=== PATIENT | male | born 1975 | race Caucasian/White ===

== ENCOUNTER 2016-02-17 14:04 | Emergency (ER) | payer MEDICAID ==
[2016-02-17 14:07] VITALS: TEMP 98.4; O2SAT 95
--- NOTE | 2016-02-17 14:37 | EDPHY ---
H & P Stated Complaint: skin rash ?allergic reaction Time Seen by Provider: 02/17/16 14:37 - Personal History Current Tetanus/Diphtheria Vaccine: Yes Current Tetanus Diphtheria and Acellular Pertussis (TDAP): Yes - Medical/Surgical History Hx Asthma: No Hx Chronic Respiratory Disease: No Hx Diabetes: No Hx Cardiac Disease: No Hx Renal Disease: No Hx Cirrhosis: No Hx Alcoholism: No Hx HIV/AIDS: No Hx Splenectomy or Spleen Trauma: No Other PMH: brain tumor 2003 - Social History Smoking Status: Never smoked Constitutional: Initial Vital Signs Temperature (C) 36.9 C 02/17/16 14:06 Heart Rate 77 02/17/16 14:06 Respiratory Rate 14 02/17/16 14:06 Blood Pressure 117/70 02/17/16 14:06 O2 Sat (%) 95 02/17/16 14:06 O2 Delivery Mode Room Air Allergies/Adverse Reactions: No Known Allergies Allergy (Verified 01/23/16 15:25) Home Medications: Medication Instructions Recorded Acetaminophen [Tylenol 325mg (*)] 650 mg PO Q4HRS PRN #0 tab 01/08/16 Dexamethasone [Decadron 2 MG (*)] 2 mg PO AD 01/24/16 Dexamethasone [Decadron 4 MG (*)] 4 mg PO AD 01/24/16 Cefepime HCl [Maxipime] 2 gm IV Q12HRS #0 vial 01/28/16 Dexamethasone [Decadron 2 MG (*)] 2 mg PO Q12H #0 tab 01/28/16 Dexamethasone [Decadron 4 MG (*)] 4 mg PO Q12H #0 tab 01/28/16 Vancomycin [Vancomycin (*)] 1.5 gm IV Q12H #0 vial 01/28/16 levETIRAcetam [Keppra 500 mg (*)] 750 mg PO BID #40 tab 01/28/16 Medical Decision Making ED Course/Re-evaluation: CHIEF COMPLAINT: Rash. 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 The rash was initially on his chest and he presented to the ER and was sent to Dr. Andre. The rash has since become pruritic and moved to his arms. He is no longer on antibiotics and is on the end of a steroid taper. He denies shortness of breath, swollen tongue, difficulty swallowing, fever, nausea, vomiting, or other complaints. REVIEW OF SYSTEMS: A 10 point review of systems was performed and is negative with the exception of the elements mentioned in the history of present illness. PHYSICAL EXAM: HR, BP, O2 Sat, RR. Temp noted General Appearance: Alert, well hydrated, appropriate, and non-toxic appearing. Head: Atraumatic without scalp tenderness or obvious injury Eyes: Pupils equal, round, reactive to light and accommodation, EOMI, no trauma , no injection. Ears: Clear bilaterally, no perforation, normal landmarks Nose: Atraumatic, no rhinorrhea, clear. Throat: There is no erythema or exudates, no lesions, normal tonsils, mucus membranes moist. Neck: Supple, 2+ carotid upstroke, nontender, no lymphadenopathy. Respiratory: No retractions, no distress, no wheezes, and no accessory muscle use. Lungs are clear to auscultation bilaterally. Cardiovascular: Regular rate and rhythm, no murmurs, rubs, or gallops. Bilateral carotid, radial, dorsalis pedis, and posterior tibial pulses intact. Good capillary refill all extremities. Gastrointestinal: Abdomen is soft, nontender, non-distended, no masses, no rebound, no guarding, no peritoneal signs. Musculoskeletal: Normal active ROM of all extremities, atraumatic. Neurological: Alert, appropriate, and interactive. The patient has normal DTRs and non-focal cranial nerves, motor, sensory, and cerebellar exam. Skin: Confluent urticaria that blanches nicely on his trunk and arms. Good turgor, no nodules on palpation. Past medical history:Brain tumor. 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 Family history:Non-contributory. Social history:Here with father. DIAGNOSTICS/PROCEDURES/CRITICAL CARE TIME: DIFFERENTIAL DIAGNOSIS: The differential diagnosis included but was not limited to anaphylaxis, anaphylactoid reaction, urticarial reaction, and other infectious causes for skin rash. MEDICAL DECISION MAKING: The patient is a 40-year-old male presenting with migrating rash for 16 days. He is a patient of Dr. 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 He was on IV antibiotics for 14 days and is on no antibiotics at this time. He is at the tail end of a steroid taper. The rash is on his trunk and extremities. I will consult with Dr. Andre from infectious disease. 1547: Consulted with infectious disease. She agrees that the patient's urticaria is most likely not due to the antibiotics that the patient was on. 1549: Consulted with Dr. Cedillo, neurosurgery. He recommends stopping Keppra, placing the patient on steroids, and following up with the office tomorrow. 4mg PO Decadron administered. I discussed this plan with the patient and answered all of his questions. He was given warnings and return precautions prior to discharge. He is comfortable with the plan. Departure - Departure Disposition: Home, Routine, Self-Care Clinical Impression: Skin rash, Medication reaction Condition: Good Instructions: Urticaria (ED) Additional Instructions: Stop taking your Keppra as we discussed. Call Dr. Martinez, neurosurgery, tomorrow to set up a follow up appointment. Return to the emergency department if you experience serious worsening of condition. Referrals: Aiden Martinez MD [Medical Doctor] - As per Instructions Report Scribed for: Severiano Perdue Report Scribed by: Josue Barry Date of Report: 02/17/16 Time of Report: 15:16
[2016-02-17] MEDS ORDERED: DEXAMETHASONE VARIABLE DOSE PO ONE (15:53)
[2016-02-17] MEDS ORDERED: DEXAMETHASONE 4 MG TAB ONE (15:57)
[2016-02-17 16:03] VITALS: BP 112/69; PULSE 71; RESP 16
== END 2016-02-17 16:03 | disposition home or self-care (01) ==
DX: R21 Rash and other nonspecific skin eruption (principal); T50.995A Adverse effect of other drugs, medicaments and biological substances, initial encounter

== ENCOUNTER → 2016-07-03 | Outpatient (CLI) | payer MEDICAID ==
[~2016-07-03] MED LIST: GADOBUTROL 10 ML VIAL IVP ONE
== END ==
LOC: FIMAGING 12:43
PROVIDERS: ATTEND Internal Medicine Hematology & Oncology
DX: C71.1 Malignant neoplasm of frontal lobe (principal)
CPT/HCPCS: A9585

== ENCOUNTER → 2016-07-31 | Outpatient (CLI) | payer OTHER, MEDICAID | LOC: FIMAGING 13:26 | PROVIDERS: ATTEND Internal Medicine Hematology & Oncology | DX: C71.1 Malignant neoplasm of frontal lobe (principal) | CPT/HCPCS: 70553; A9585 ==

== ENCOUNTER → 2016-10-22 | Outpatient (CLI) | payer OTHER, MEDICAID | LOC: FIMAGING 14:02 | PROVIDERS: ATTEND Internal Medicine Hematology & Oncology | DX: C71.9 Malignant neoplasm of brain, unspecified (principal) | CPT/HCPCS: 70553; A9585 ==

== ENCOUNTER → 2017-02-19 | Outpatient (CLI) | payer OTHER, MEDICAID | LOC: FIMAGING 12:59 | PROVIDERS: ATTEND Internal Medicine Hematology & Oncology | DX: Z08 Encounter for follow-up examination after completed treatment for malignant neoplasm (principal); C71.1 Malignant neoplasm of frontal lobe; I62.00 Nontraumatic subdural hemorrhage, unspecified; Z92.3 Personal history of irradiation | CPT/HCPCS: 70553; A9585 ==

== ENCOUNTER → 2017-06-11 | Outpatient (CLI) | payer OTHER, MEDICAID | LOC: FIMAGING 14:10 | PROVIDERS: ATTEND Physician Assistant | DX: Z48.3 Aftercare following surgery for neoplasm (principal); G93.89 Other specified disorders of brain; Z85.841 Personal history of malignant neoplasm of brain | CPT/HCPCS: 70553; A9585 ==

== ENCOUNTER → 2017-11-23 | Outpatient (CLI) | payer OTHER, MEDICAID | LOC: FIMAGING 10:06 | PROVIDERS: ATTEND Internal Medicine Hematology & Oncology | DX: Z08 Encounter for follow-up examination after completed treatment for malignant neoplasm (principal); Z85.841 Personal history of malignant neoplasm of brain; Z98.890 Other specified postprocedural states | CPT/HCPCS: 70553; A9585 ==

== ENCOUNTER → 2018-03-09 | Outpatient (CLI) | payer OTHER, MEDICAID | LOC: FIMAGING 13:38 | PROVIDERS: ATTEND Internal Medicine Hematology & Oncology | DX: Z08 Encounter for follow-up examination after completed treatment for malignant neoplasm (principal); C71.1 Malignant neoplasm of frontal lobe; J32.0 Chronic maxillary sinusitis | CPT/HCPCS: 70553; A9585 ==

== ENCOUNTER → 2018-05-19 | Outpatient (CLI) | payer OTHER, MEDICAID | LOC: FIMAGING 11:45 | PROVIDERS: ATTEND Internal Medicine Hematology & Oncology | DX: Z08 Encounter for follow-up examination after completed treatment for malignant neoplasm (principal); Z85.841 Personal history of malignant neoplasm of brain | CPT/HCPCS: 70553; A9585 ==